=== PATIENT | male | born 1980 | race African-American/Black ===

== ENCOUNTER 2017-05-17 14:05 | Day surgery (SDC) | payer OTHER ==
[2017-05-15 15:16] VITALS: BMI 27.3
[2017-05-17] MEDS ORDERED: BUPIVACAINE HCL/PF 0.5% (5MG/ML) 10 ML VIAL ONE (14:26)
[2017-05-17] MEDS ORDERED: ONDANSETRON 4 MG/2 ML VIAL IVPUSH PRN ×2 (14:32→20:18)
[2017-05-17] MEDS ORDERED: MIDAZOLAM HCL 2 MG/2 ML SINGLE DOSE VIAL ONE (14:39)
[2017-05-17] MEDS ORDERED: DEXAMETHASONE SOD PHOSPHATE/PF 10 MG/ML SDV ONE (14:40)
[2017-05-17] MEDS ORDERED: ROPIVACAINE HCL 0.5% 30ML VIAL ONE (14:41)
[2017-05-17] MEDS ORDERED: LACTATED RINGERS SOLUTION 1,000 ML IV SCH (14:45)
[2017-05-17] MEDS ORDERED: PROPOFOL 20 ML ONE ×3 (17:08→17:29)
[2017-05-17] MEDS ORDERED: ceFAZolin SODIUM 1 GM VIAL ONE (17:33)
[2017-05-17] MEDS ORDERED: oxyCODONE HCL 5 MG TABLET PO PRN (20:18)
[2017-05-17 22:02] VITALS: BP 132/90; PULSE 88; TEMP 97.7
--- NOTE | 2017-05-18 09:05 | OP ---
DATE OF OPERATION: 05/17/2017 PREOPERATIVE DIAGNOSIS: Right thumb carpometacarpal, highly comminuted fracture-dislocation, i.e. John fracture. POSTOPERATIVE DIAGNOSIS: Right thumb carpometacarpal, highly comminuted fracture-dislocation, i.e. John fracture. OPERATIVE PROCEDURE: Open reduction and internal fixation, right highly-comminuted, intraarticular, displaced thumb carpometacarpal fracture-dislocation. SURGEON: Miller Sanchez MD JAP[place]ESE PROFESSOR: DIOGO Salas ANESTHESIA: Regional. COMPLICATIONS: None. ESTIMATED BLOOD LOSS: Minimal. INDICATION FOR PROCEDURE: The patient is a 36-year-old male with the above finding. He was indicated for operative treatment. Risks, benefits, and alternatives were discussed with the patient at length. Proper informed consent was obtained. DESCRIPTION OF PROCEDURE: After proper identification of the patient and correct operative site, patient was brought to the operating room and placed supine on the operating table. All prominences well padded. Sedation was given by the anesthesiologist along with regional anesthesia. Right upper extremity was prepped and draped in the usual sterile fashion. A well-padded tourniquet was placed as well as a sterile prep. Esmarch bandage to exsanguinate the right upper extremity. Tourniquet was inflated to 250 mmHg. A curvilinear incision was made over the thumb carpometacarpal joint along the radial aspect in a Ybarra-type approach. Incision was taken sharply through the skin with blunt and sharp dissection through the subcutaneous tissues. Several branches of the sensory nerve were identified and carefully protected. The thenar muscles were elevated off of the carpometacarpal joint and thumb metacarpal base. The carpometacarpal joint was entered through a longitudinal capsulotomy. A highly-comminuted intraarticular fracture was noted with at least 5 main fragments of articular surface present. There were several small fragments in addition that were essentially "dusted." Approximately 80% of the articular surface was left available for repair. These fragments were highly comminuted and displaced. Two fragments including a radial and volar ulnar fragment were the main components. Significant callus formation was already present between the shaft and the articular surface consistent with early malunion. This callus was debrided and removed in order to mobilize the distal fragments. The articular surface was meticulously freed, and the fracture and joint dislocation were reduced. The shaft fracture was reduced by pinning it to the 2nd metacarpal using two 1.0-mm K-wires. The articular surface was reconstructed and approximated as well as possible to the shaft and in the joint and held with 0.8-mm K-wires in multiple directions including from the articular surface to the metacarpal shaft and from the metacarpal shaft through the fragments and into the trapezium. This provided secure stable fixation clinically with direct visualization as well as radiographically in multiple planes. The wound was irrigated with saline. Capsule was repaired using 3-0 Vicryl suture. Skin was repaired in layers using 4-0 Vicryl and 4-0 nylon suture. Sterile dressings and splint were placed. Pins were all cut short underneath the skin with anticipation of return to the OR for pin removal. K-wires were used throughout the procedure as the fragments were too small to hold any screws or plates. DIOGO Salas, the legal executive assistant, was integral throughout this procedure, and procedure could not have been performed without a skilled operative legal executive assistant. Nestor [id number]
== END 2017-05-17 22:02 | disposition home or self-care (01) ==
LOC: FASU 14:05
PROVIDERS: ATTEND Orthopaedic Surgery Hand Surgery
PROC: 0PSP04Z Reposition Right Metacarpal with Internal Fixation Device, Open Approach (ICD-10-PCS; principal; 2017-05-17 16:00)
DX: S62.221A Displaced Rolando's fracture, right hand, initial encounter for closed fracture (principal); X58.XXXA Exposure to other specified factors, initial encounter; Y93.9 Activity, unspecified; Y92.9 Unspecified place or not applicable
CPT/HCPCS: 73130-TC-RT; 94760

== ENCOUNTER → 2017-06-28 | Day surgery (SDC) | payer OTHER ==
[2017-06-22 10:41] VITALS: BMI 26.6
[~2017-06-28] MED LIST: BUPIVACAINE HCL/PF 2.5 MG/ML - 30 ML VIAL IJ ONE; MIDAZOLAM HCL 2 MG/2 ML SINGLE DOSE VIAL ONE; ROPIVACAINE HCL 0.5% 30ML VIAL ONE
[2017-06-28 12:40] VITALS: TEMP 97.8
--- NOTE | 2017-06-28 13:08 | OP ---
DATE OF OPERATION: 06/28/2017 PREOPERATIVE DIAGNOSIS: Status post open reduction internal fixation, right thumb metacarpal base fracture. POSTOPERATIVE DIAGNOSIS: Status post open reduction internal fixation, right thumb metacarpal base fracture. OPERATIVE PROCEDURE: Removal of deep implants, right thumb and hand. SURGEON: Miller Mcintyre MD ANESTHESIA: Local with sedation. COMPLICATIONS: None. ESTIMATED BLOOD LOSS: Minimal. INDICATIONS FOR PROCEDURE: The patient is a 36-year-old male who had an open reduction internal fixation of right John fracture. He was indicated for removal of implants. The risks, benefits, and alternatives were discussed with the patient at length. Proper informed consent was obtained. DESCRIPTION OF PROCEDURE: After proper identification of the patient and the correct operative site, the patient was brought to the operating room and placed supine on the operating room table. All bony prominences were well padded. Sedation was given, intravenous antibiotics were given. Right upper extremity was prepped and draped in the usual sterile fashion. There were 5 total deep buried K-wires that had been placed. Each of these were palpated in the skin. Then, a small incision was made right over the pin, and then, the pin was removed atraumatically. Wounds were irrigated with saline. X-rays were taken to confirm full removal of hardware and proper reduction and healing of the fracture. Sterile dressings were applied. Splint was placed. Patient was reversed from anesthesia and brought to the recovery room in stable condition. He tolerated the procedure well. MILLER MCINTYRE M.D. [id number]
[2017-06-28 13:49] VITALS: BP 155/88; PULSE 66
--- NOTE | 2017-07-03 08:29 | PATH ---
Surgical Pathology Report Patient Name: MONROE AQUINO Med. Rec. #: [id number] /Age/Gender: 1980 (Age: 36) / M Account: [id number] Location: [facility] AMBUL[facility]ORY Taken: 06/28/2017 Received: 06/28/2017 Reported: 07/03/2017 Physicians: Miller Sanchez M.D. Specimen(s) Received EXPLANTED HARDWARE RIGHT THUMB Clinical History Status post ORIF thumb fracture Final Diagnosis ORTHOPEDIC HARDWARE, RIGHT THUMB, REMOVAL: FIVE METALLIC PINS CONSISTENT WITH ORTHOPEDIC HARDWARE (GROSS ONLY). Electronically Signed Reginaldo Phillips M.D. Gross Description Received fresh labeled "explanted hardware right thumb," are 5 norris metallic pins ranging from 3.5-6.0 cm in length and averaging 0.1 cm in diameter. No soft tissue is present. No sections are submitted, gross only. 06/29/201706/29/2017
== END | disposition home or self-care (01) ==
LOC: FASU 07:27
PROVIDERS: ATTEND Orthopaedic Surgery Hand Surgery
PROC: 0PPT04Z Removal of Internal Fixation Device from Right Finger Phalanx, Open Approach (ICD-10-PCS; principal; 2017-06-28 08:59)
DX: Z47.2 Encounter for removal of internal fixation device (principal)
CPT/HCPCS: 73130-TC-RT-FY; 88300-TC